=== PATIENT | female | born 1985 | race Two or more races ===

== ENCOUNTER 2024-07-26 01:43 | Inpatient (IN) | payer SELFPAY ==
[~2024-07-26] VITALS: Ht 162.6 cm; Wt 79.3 kg
[2024-07-26] VITALS (7 sets, daily range): BP systolic 92–108; BP diastolic 50–69; PULSE 68–94; RESP 16–94; TEMP 97.5–98.6; O2SAT 94–99
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
[2024-07-26 03:49] LABS: Urine Bacteria FEW /hpf (None Seen); Urine Blood Negative /uL (Negative); Urine Clarity Turbid (Clear); Urine Color Yellow (Yellow); Urine Mucus FEW (None Seen); Urine Protein, UAD TRACE (Negative); Urine Specific Gravity 1.028 (1.001-1.035); Urine Squamous Epithelial Cell FEW /hpf (<5); Urine Urobilinogen 4 mg/dL (Negative); Urine WBC 2 /HPF (0-5)
[2024-07-26] MEDS ORDERED: IBUP1TAB4 PO (05:05)
[2024-07-26] MEDS ORDERED: POLY335015 PO (05:05)
[2024-07-26 05:20] LABS: Basophils # (auto) 0.1 10 ^3/uL (0-0.2); Hemoglobin 7.6 g/dL (12.2-16.2); Lymphocytes # (auto) 3.2 10 ^3/uL (0.4-5.4); Monocytes % (auto) 7.1 % (0.0-12.0)
[2024-07-26 05:25] LABS: Basophils % (auto) 0.9 % (0.0-2.0); Eosinophils # (auto) 0.2 10 ^3/uL (0-0.8); Eosinophils % (auto) 2.4 % (0.0-7.0); Lymphocytes % (auto) 30.5 % (10.0-50.0); Mean Corpuscular Hemoglobin 16.2 pg (28.0-32.0); Mean Corpuscular Hgb Conc. 29.4 g/dL (32.0-36.0); Monocytes # (auto) 0.7 10 ^3/uL (0-1.3); Neutrophils # (auto) 6.2 10 ^3/uL (1.6-8.6); Neutrophils % (auto) 59.1 % (37.0-80.0); Platelet Count (auto) 512 10^3/uL (140-450); Red Blood Cells 4.72 10^6/uL (4.0-5.20); Red Cell Distribution Width 21.4 % (11.8-14.3); White Blood Cell 10.5 10^3/uL (4.4-10.8)
[2024-07-26 05:39] LABS: Alanine Aminotransferase 22 U/L (7-40); Alkaline Phosphatase 108 U/L (46-116); Anion Gap 9 (5-15); Aspartate Aminotransferase 21 U/L (13-40); BUN/Creatinine Ratio 22.6 (10.0-20.0); Bilirubin, Total 0.5 mg/dL (0.2-1.0); Blood Urea Nitrogen 14 mg/dL (9-23); Calcium 9.1 mg/dL (8.7-10.4); Carbon Dioxide 25 mmol/L (20-31); Chloride 106 mmol/L (98-107); Glucose 92 mg/dL (74-106); Sodium 140 mmol/L (136-145); Total Protein 7.8 g/dL (5.7-8.2)
[2024-07-26 05:50] LABS: Albumin 5.1 g/dL (3.2-4.8); Potassium 3.2 mmol/L (3.5-5.1)
[2024-07-26] MEDS ORDERED: SODIUM CHL 0.9% 100 ML IV ONE (06:30)
[2024-07-26] MEDS ORDERED: POTASSIUM CHL 20MEQ/50ML 50 ML IV ONE (06:30)
[2024-07-26] MEDS ORDERED: MORPHINE SULFATE INJ 2 MG/ml SYRG IV PRN (07:15)
[2024-07-26] MEDS ORDERED: DOCUSATE SOD 100 MG CAP PO PRN (07:15)
[2024-07-26] MEDS ORDERED: ACETAMINOPHEN 325 MG TAB PO PRN (07:15)
[2024-07-26] MEDS ORDERED: ONDANSETRON HCL 4 MG/2 ML VIAL IV PRN (07:15)
[2024-07-26] MEDS ORDERED: HYDROcodone-ACET 5/325MG TAB PO PRN (07:15)
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
--- NOTE | 2024-07-26 08:15 | DVH ---
Date: 07/26/2024 07:37 AM Examination: XY KUB ABDOMEN SINGLE VIEW History: constipation Comparison: None TECHNIQUE: Frontal views of the abdomen was obtained. FINDINGS: Bowel gas pattern is unremarkable. Moderate stool burden The lung bases are unremarkable. No acute osseous abnormality identified. IMPRESSION: Nonobstructive bowel gas pattern.
--- NOTE | 2024-07-26 08:15 | DVH ---
INDICATION: back pain COMPARISON: None TECHNIQUE: 2 views of the lumbar spine were obtained. FINDINGS: The lumbar vertebral alignment is normal. Punctate possible stone in the left kidney measures 3 mm. The intervertebral disc spaces are well-maintained. No significant facet arthropathy is noted. No acute fracture, vertebral compression deformity or aggressive osseous lesions. The paravertebral soft tissues are grossly unremarkable. IMPRESSION: No acute fracture. Punctate possible stone in the left kidney measures 3 mm.
[2024-07-26] MEDS: POTASSIUM CHL 20 Meq TABLET PO ONE (08:20)
[2024-07-26 09:19] LABS: Amphetamine Screen, Urine Pos (NEGATIVE); Barbiturate Scree,Urine Neg (NEGATIVE); Benzodiazephine Screen, Urine Neg (NEGATIVE); Cannabinoid Screen, Urine Neg (NEGATIVE); Cocaine Screen, Urine Neg (NEGATIVE); Opiate Scree,Urine Neg (NEGATIVE); Phencyclidine Screen, Urine Pos (NEGATIVE)
[2024-07-26] MEDS: POLYETHYLENE GLYCOL 17 GM PWDR PO SCH (10:35)
[2024-07-26] MEDS: SENNA 8.6 MG TAB PO SCH (21:07)
[2024-07-27 05:00] VITALS: BP 106/55; PULSE 83; RESP 17; TEMP 98.3; O2SAT 98
[2024-07-27 07:39] LABS: Basophils # (auto) 0.1 10 ^3/uL (0-0.2); Basophils % (auto) 0.7 % (0.0-2.0); Eosinophils # (auto) 0.2 10 ^3/uL (0-0.8); Eosinophils % (auto) 2.1 % (0.0-7.0); Hematocrit 24.8 % (36.0-46.0); Hemoglobin 7.2 g/dL (12.2-16.2); Lymphocytes # (auto) 1.4 10 ^3/uL (0.4-5.4); Lymphocytes % (auto) 18.2 % (10.0-50.0); Mean Corpuscular Hemoglobin 15.9 pg (28.0-32.0); Mean Corpuscular Hgb Conc. 28.9 g/dL (32.0-36.0); Mean Corpuscular Volume 55.1 fL (80.0-100.0); Monocytes # (auto) 0.5 10 ^3/uL (0-1.3); Monocytes % (auto) 6.7 % (0.0-12.0); Neutrophils # (auto) 5.7 10 ^3/uL (1.6-8.6); Neutrophils % (auto) 72.3 % (37.0-80.0); Platelet Count (auto) 454 10^3/uL (140-450); Red Cell Distribution Width 21.3 % (11.8-14.3); White Blood Cell 7.8 10^3/uL (4.4-10.8)
[2024-07-27 08:00] VITALS: BP 106/62; PULSE 82; PULSE 83; RESP 17; TEMP 98.4; O2SAT 99
[2024-07-27 08:04] LABS: Alanine Aminotransferase 21 U/L (7-40); Albumin 4.4 g/dL (3.2-4.8); Alkaline Phosphatase 96 U/L (46-116); Anion Gap 9 (5-15); Blood Urea Nitrogen 13 mg/dL (9-23); Calcium 9.6 mg/dL (8.7-10.4); Carbon Dioxide 23 mmol/L (20-31); Chloride 106 mmol/L (98-107); Potassium 4.3 mmol/L (3.5-5.1); Sodium 138 mmol/L (136-145)
[2024-07-27 08:05] LABS: Aspartate Aminotransferase 17 U/L (13-40); Bilirubin, Total 0.6 mg/dL (0.2-1.0)
[2024-07-27 08:08] LABS: Glucose 116 mg/dL (74-106)
[2024-07-27 12:00] VITALS: BP 117/69; PULSE 90; RESP 17; TEMP 97.6; O2SAT 95
--- NOTE | 2024-07-27 13:56 | DVHPN2 ---
Musculoskeletal: back pain Objective Vitals Vital Signs Date Time Temp Pulse Resp B/P (MAP) Pulse Ox O2 Delivery O2 Flow Rate FiO2 07/27/24 08:00 82 07/27/24 08:00 Room Air* 0 21 07/27/24 08:00 98.4 17 106/62 (77) 99 98.4 Intake/Output Intake and Output 07/27/24 07:00 Intake Total 1400 ml Balance 1400 ml Intake Oral 1400 ml # Voids 2 # Bowel Movements 1 Medications Current Medications Medications Dose Ordered Sig/Rainer Route Start Time Stop Time Status Last Admin Dose Admin Acetaminophen/ Hydrocodone Bitart 1 tab Q4HP PRN PO 07/26/24 07:15 Hold Ondansetron HCl 4 mg Q4HP PRN IV 07/26/24 07:15 Docusate Sodium 100 mg BIDPRN PRN PO 07/26/24 07:15 Acetaminophen 650 mg Q6HP PRN PO 07/26/24 07:15 Hold Morphine Sulfate 2 mg Q4HPRN PRN IV 07/26/24 07:15 Hold Polyethylene Glycol 17 gm DAILY PO 07/26/24 10:15 07/26/24 10:35 17 GM Sennosides 8.6 mg HS PO 07/26/24 22:00 07/26/24 21:07 8.6 MG Laboratory Results Laboratory Tests 07/27/24 07:20 Chemistry Test 07/27/24 07:20 Albumin 4.4 g/dL (3.2-4.8) Calcium Level 9.6 mg/dL (8.7-10.4) Total Protein 7.0 g/dL (5.7-8.2) LFT Test 07/27/24 07:20 Alanine Aminotransferase (ALT) 21 U/L (7-40) Alkaline Phosphatase 96 U/L (46-116) Aspartate Amino Transferase (AST) 17 U/L (13-40) Total Bilirubin 0.6 mg/dL (0.2-1.0) Urinalysis Test 07/26/24 02:24 Urine Color Yellow (Yellow) Urine Clarity Turbid (Clear) H Urine pH 6.0 (5.0-9.0) Urine Specific [place] 1.028 (1.001-1.035) Urine Protein Trace (Negative) H Urine Ketones Trace (Negative) Urine Blood Negative /uL (Negative) Urine Nitrite Negative (Negative) Urine Bilirubin Negative (Negative) Urine Urobilinogen 4 mg/dL (Negative) H Urine Leukocyte Esterase Negative /uL (Negative) Urine RBC 2 /hpf (0 - 4) Urine Microscopic WBC 2 /HPF (0-5) Urine Squamous Epithelial Cells Few /hpf (<5) Urine Bacteria Few /hpf (None Seen) H Urine Mucus Few (None Seen) Urine Glucose Normal mg/dL (Normal) Urine Test Negative (Negative) JILLIAN BRADLEY MD July 27, 2024 13:56
[2024-07-27] MEDS ORDERED: METR-344 PO (14:57)
[2024-07-27] MEDS ORDERED: DOXY-286 PO (14:57)
[2024-07-27] MEDS: metroNIDAZOLE 500 MG TAB PO ONE (15:17)
[2024-07-27] MEDS: DOXYCYCLINE 100 MG TAB/CAP PO ONE (15:17)
[2024-07-27 16:00] VITALS: BP 104/64; PULSE 75; RESP 18; TEMP 98.4; O2SAT 100
[2024-07-27 16:08] VITALS: BP 117/69; PULSE 90; RESP 17; TEMP 97.6; O2SAT 95
[2024-07-27] MEDS ORDERED: metroNIDAZOLE 500 MG TAB PO SCH (22:00)
[2024-07-27] MEDS ORDERED: DOXYCYCLINE 100 MG TAB/CAP PO SCH (22:00)
[2024-07-28 07:06] LABS: Chlamydia Trachomatis, NAA Negative (Negative); Neisseria gonorrhoeae, NAA Negative (Negative)
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
== END 2024-07-27 17:13 | disposition home or self-care (01) | DRG 923 ==
LOC: ER 01:43 → EEVIPCON 07:10 → OVERFLOW 07:10 → TELE-EAST 12:08
PROVIDERS: ADMIT Internal Medicine; ATTEND Internal Medicine
DX: T74.21XA Adult sexual abuse, confirmed, initial encounter (principal); E87.6 Hypokalemia; K62.89 Other specified diseases of anus and rectum; E66.9 Obesity, unspecified; F10.90 Alcohol use, unspecified, uncomplicated; Y90.9 Presence of alcohol in blood, level not specified; M54.9 Dorsalgia, unspecified; D64.9 Anemia, unspecified; Z87.891 Personal history of nicotine dependence; Z83.3 Family history of diabetes mellitus; Z88.6 Allergy status to analgesic agent; Z88.5 Allergy status to narcotic agent; Z68.30 Body mass index [BMI] 30.0-30.9, adult; Z98.891 History of uterine scar from previous surgery; Z71.41 Alcohol abuse counseling and surveillance of alcoholic
CPT/HCPCS: 36415; 72100; 74018; 80053; 80307; 81001; 81025; 85025; 86703; 86803; 87340; G0378